=== PATIENT | female | born 1980 | race Caucasian/White ===

== ENCOUNTER 2017-01-21 14:42 | Emergency (ER) | payer MEDICAID, OTHER ==
[~2017-01-21] VITALS: Ht 162.6 cm; Wt 78.4 kg
[2017-01-21] MEDS ORDERED: FERR325T18 PO (15:25)
[2017-01-21] MEDS ORDERED: CLON0.1T PO (15:25)
[2017-01-21] MEDS ORDERED: PNV1TABL12 PO (15:25)
[2017-01-21] MEDS ORDERED: CYAN500T2 PO (15:25)
[2017-01-21] MEDS ORDERED: FOLI-17 PO (15:25)
[2017-01-21] MEDS ORDERED: CHOL20002 PO (15:25)
[2017-01-21 15:49] LABS: HEMATOCRIT 34.3 % (34.6-47.8); HEMOGLOBIN 11.4 g/dL (11.7-16.4); WHITE BLOOD COUNT 7.4 x10^3/uL (3.4-10)
[2017-01-21 15:59] LABS: ASPARTATE AMINO TRANSFERASE 41 U/L (15-37); BLOOD UREA NITROGEN 10 mg/dL (7-18); TOTAL IRON BINDING CAPACITY 249 mcg/dL (250-450)
[2017-01-21 16:15] VITALS: BP 137/77
== END 2017-01-21 16:27 ==
LOC: ED 16:10
DX: D53.9 Nutritional anemia, unspecified (principal); F11.10 Opioid abuse, uncomplicated; I10 Essential (primary) hypertension; G25.81 Restless legs syndrome
CPT/HCPCS: 36415; 71010; 80053; 82607; 82746; 83540; 83550; 85025; 93005; 99285

== ENCOUNTER 2018-06-16 21:44 | Emergency (ER) | payer MEDICAID ==
[~2018-06-16] VITALS: Ht 162.6 cm; Wt 74.0 kg
[~2018-06-16 21:44] MED LIST: CHOL20002 PO; CLON0.1T22 PO; CYAN500T2 PO; FERR325T18 PO; FOLI-17 PO; PNV1TABL12 PO
[2018-06-16] MEDS ORDERED: METH40TA2 PO (22:05)
--- NOTE | 2018-06-16 22:05 | NUR ---
PT REPORTS UPPER ABD PAIN X LAST 5 HOURS. PT REPORTS URINATION AND BM WITHOUT DIFFICULTY. LAST DRINK WAS LAST NIGHT
[2018-06-16] MEDS ORDERED: HYDROmorphone 2 MG/ML, 1ML ONE (22:17)
[2018-06-16] MEDS ORDERED: ONDANSETRON ODT 8 MG ONE (22:17)
[2018-06-16] MEDS ORDERED: HYDROmorphone 1 MG/ML, 1ML ONE (22:20)
--- NOTE | 2018-06-16 22:24 | NUR ---
[facility] BING[facility] NOW
[2018-06-16] MEDS ORDERED: HYDROmorphone 1 MG/ML, 1ML IM ONE (22:30)
[2018-06-16] MEDS ORDERED: ONDANSETRON ODT 8 MG PO ONE (22:30)
--- NOTE | 2018-06-16 22:59 | NUR ---
labs were drawn
--- NOTE | 2018-06-16 22:59 | NUR ---
pt up ambulated to bathroom with stable gait given urine cup
[2018-06-16 23:01] LABS: BASOPHILS # (AUTO) 0.01 x10^3/uL (0-0.1); BASOPHILS % (AUTO) 0 % (0-1); EOSINOPHILS # (AUTO) 0.02 x10^3/uL (0-0.4); EOSINOPHILS % (AUTO) 0 % (1-7); LYMPHOCYTES # (AUTO) 0.56 x10^3/uL (1-3.4); LYMPHOCYTES % (AUTO) 11 % (22-44); MD NO; MEAN CORPUSCULAR HEMOGLOBIN 35.3 pg (27.0-34.8); MEAN CORPUSCULAR HGB CONC 34.3 g/dL (32.4-35.8); MEAN CORPUSCULAR VOLUME 102.8 fL (80-100); MEAN PLATELET VOLUME 7.2 fL (7.4-10.4); MONOCYTES # (AUTO) 0.33 x10^3/uL (0.2-0.8); MONOCYTES % (AUTO) 7 % (2-9); NEUTROPHILS # (AUTO) 4.11 x10^3/uL (1.8-6.8); NEUTROPHILS % (AUTO) 82 % (42-75); PLATELET COUNT 200 x10^3/uL (130-400); RED BLOOD COUNT 4.15 x10^6/uL (3.82-5.3); RED CELL DISTRIBUTION WIDTH 14.1 % (9.6-15.2)
[2018-06-16 23:14] LABS: ALANINE AMINOTRANSFERASE 64 U/L (12-78); ALBUMIN 3.5 g/dL (3.4-5.0); ANION GAP 8 mmol/L (5-15); CALCIUM 8.4 mg/dL (8.5-10.1); CHLORIDE 106 mmol/L (98-107); CREATININE 0.71 mg/dL (0.55-1.02)
[2018-06-16 23:16] LABS: MICROSCOPIC NOT IND
[2018-06-16 23:18] LABS: CULTURE INDICATED? NO
[2018-06-16 23:18] LABS: ALKALINE PHOSPHATASE 122 U/L (45-117); BILIRUBIN,TOTAL 1.5 mg/dL (0.2-1.0); TOTAL PROTEIN 6.5 g/dL (6.4-8.2)
[2018-06-16] MEDS ORDERED: ZIPRASIDONE 20 MG INJ IM ONE ×2 (23:30→23:34)
--- NOTE | 2018-06-16 23:44 | NUR ---
meds given eevrt tan shot will recheck
--- NOTE | 2018-06-16 23:44 | NUR ---
pt is laying down in the [place] d/t pain given meds will recheck
--- NOTE | 2018-06-17 00:29 | NUR ---
pt is resting after given geodon im vss stable
--- NOTE | 2018-06-17 00:43 | NUR ---
pt stated feeling better now vss updated pt up ambulated to check out and calling for ride
[2018-06-17 00:44] VITALS: BP 124/84
== END 2018-06-17 00:46 | disposition home or self-care (01) ==
LOC: ED 23:05
DX: K85.20 Alcohol induced acute pancreatitis without necrosis or infection (principal); I10 Essential (primary) hypertension; Z90.89 Acquired absence of other organs; Z90.722 Acquired absence of ovaries, bilateral
CPT/HCPCS: 36415; 80053; 81003; 83690; 84703; 85025; 96372; 99283; J1170; J3486; Q0162

== ENCOUNTER 2018-06-18 05:36 | Emergency (ER) | payer MEDICAID ==
[~2018-06-18] VITALS: Ht 162.6 cm; Wt 73.1 kg
[~2018-06-18 05:36] MED LIST changes: +METH40TA2 PO
--- NOTE | 2018-06-18 06:20 | NUR ---
pt came back today again d/t abdomen pain ( pt has hx of chronic pancreatitis ) pt stated the pain is getting worset since visited yesterday . vss stable pt is [id number]
[2018-06-18] MEDS ORDERED: SODIUM CHLORIDE FLUSH 10ML SYR IVF ONE (06:30)
[2018-06-18] MEDS ORDERED: ONDANSETRON 2MG/ML, 2ML IVPush ONE (06:30)
[2018-06-18] MEDS ORDERED: ONDANSETRON 2MG/ML, 2ML ONE (06:40)
[2018-06-18] MEDS ORDERED: MORPHINE SULFATE 4 MG/ML, 1ML ONE (07:00)
[2018-06-18] MEDS ORDERED: morphine SULFATE 10 MG/ML, 1ML IVPush ONE (07:00)
[2018-06-18 07:04] LABS: BASOPHILS # (AUTO) 0.03 x10^3/uL (0-0.1); BASOPHILS % (AUTO) 0 % (0-1); EOSINOPHILS # (AUTO) 0.02 x10^3/uL (0-0.4); EOSINOPHILS % (AUTO) 0 % (1-7); LYMPHOCYTES # (AUTO) 0.78 x10^3/uL (1-3.4); LYMPHOCYTES % (AUTO) 10 % (22-44); MD NO; MEAN CORPUSCULAR HEMOGLOBIN 34.4 pg (27.0-34.8); MEAN CORPUSCULAR VOLUME 104.3 fL (80-100); MEAN PLATELET VOLUME 7.5 fL (7.4-10.4); MONOCYTES # (AUTO) 0.59 x10^3/uL (0.2-0.8); MONOCYTES % (AUTO) 8 % (2-9); NEUTROPHILS # (AUTO) 6.33 x10^3/uL (1.8-6.8); NEUTROPHILS % (AUTO) 82 % (42-75); PLATELET COUNT 243 x10^3/uL (130-400); RED BLOOD COUNT 4.45 x10^6/uL (3.82-5.3); RED CELL DISTRIBUTION WIDTH 14.1 % (9.6-15.2)
[2018-06-18] MEDS ORDERED: morphine SULFATE 10 MG/ML, 1ML ONE (07:05)
[2018-06-18 07:11] LABS: ALANINE AMINOTRANSFERASE 47 U/L (12-78); ALBUMIN 3.7 g/dL (3.4-5.0); ANION GAP 9 mmol/L (5-15); CALCIUM 8.8 mg/dL (8.5-10.1); CHLORIDE 105 mmol/L (98-107)
[2018-06-18 07:14] LABS: ALKALINE PHOSPHATASE 114 U/L (45-117); BILIRUBIN,TOTAL 1.5 mg/dL (0.2-1.0); TOTAL PROTEIN 7.1 g/dL (6.4-8.2)
--- NOTE | 2018-06-18 07:58 | NUR ---
PT MEDICATED PER ORDER. PT FOUND TO HAVE RA OF 88%. PLACED ON 2 LPM O2 VIA NC
[2018-06-18 08:26] VITALS: BP 136/79
[2018-06-18 09:11] LABS: CULTURE INDICATED? YES; MICROSCOPIC INDICATED
--- NOTE | 2018-06-18 10:28 | NUR ---
pt expressed concerns of pain. these concerns were brought to the attention of md. no new orders at this time. pt continues to moan in room. warm blanket offered but decliened.
== END 2018-06-18 10:59 | disposition home or self-care (01) ==
LOC: ED 09:26
DX: K85.20 Alcohol induced acute pancreatitis without necrosis or infection (principal); R10.84 Generalized abdominal pain; F17.200 Nicotine dependence, unspecified, uncomplicated; I10 Essential (primary) hypertension; E11.9 Type 2 diabetes mellitus without complications
CPT/HCPCS: 36415; 74021; 80053; 81001; 83690; 84703; 85025; 87086; 93005; 96374; 96375; 99284; J2270; J2405

== ENCOUNTER 2018-07-22 03:31 | Inpatient (IN) | payer MEDICAID ==
[~2018-07-22] VITALS: Ht 162.6 cm; Wt 80.1 kg
[2018-07-22] MEDS ORDERED: HYDROmorphone 2 MG/ML, 1ML ONE (04:28)
[2018-07-22] MEDS ORDERED: PROMETHAZINE 25 MG/ML, 1ML ONE (04:28)
[2018-07-22] MEDS ORDERED: SODIUM CHLORIDE FLUSH 10ML SYR IVF ONE (04:30)
[2018-07-22] MEDS ORDERED: PROMETHAZINE 25 MG/ML, 1ML IM ONE (04:30)
[2018-07-22] MEDS ORDERED: SODIUM CHLORIDE 0.9% 1,000ML IVBOLUS ONE (04:30)
[2018-07-22] MEDS ORDERED: FAMOTIDINE 20 MG/2 ML IVP ONE (04:30)
[2018-07-22] MEDS ORDERED: HYDROmorphone 1 MG/ML, 1ML INJ IM ONE (04:30)
[2018-07-22] MEDS ORDERED: MORPHINE SULFATE 4 MG/ML, 1ML IVPush ONE (04:30)
[2018-07-22] MEDS ORDERED: LORazepam 2 MG/ML, 1ML ONE ×2 (04:37→05:36)
[2018-07-22] MEDS ORDERED: FAMOTIDINE 20 MG TABLET ONE (04:43)
--- NOTE | 2018-07-22 04:43 | NUR ---
PT REPORTS SHE IS IN ALCOHOL WD. PT'S VS STABLE. PT BECAME ANXIOUS STARTED YELLING, "MY BODY IS LOCKING UP." DR CEE AWARE. VS STABLE. HEARING AID REPAIRER ON. NSR NOTED AT 98. CALL LIGHT IN PLACE. WILL CONTINUE TO MONITOR.
[2018-07-22] MEDS ORDERED: FAMOTIDINE 20 MG/2 ML ONE (04:44)
[2018-07-22 04:56] LABS: BASOPHILS # (AUTO) 0.03 x10^3/uL (0-0.1); BASOPHILS % (AUTO) 0 % (0-1); EOSINOPHILS # (AUTO) 0.09 x10^3/uL (0-0.4); EOSINOPHILS % (AUTO) 1 % (1-7); LYMPHOCYTES # (AUTO) 1.53 x10^3/uL (1-3.4); LYMPHOCYTES % (AUTO) 16 % (22-44); MD NO; MEAN CORPUSCULAR HEMOGLOBIN 34.4 pg (27.0-34.8); MEAN CORPUSCULAR HGB CONC 34.5 g/dL (32.4-35.8); MEAN CORPUSCULAR VOLUME 99.6 fL (80-100); MEAN PLATELET VOLUME 7.2 fL (7.4-10.4); MONOCYTES # (AUTO) 0.58 x10^3/uL (0.2-0.8); MONOCYTES % (AUTO) 6 % (2-9); NEUTROPHILS # (AUTO) 7.35 x10^3/uL (1.8-6.8); NEUTROPHILS % (AUTO) 77 % (42-75); PLATELET COUNT 209 x10^3/uL (130-400); RED BLOOD COUNT 4.26 x10^6/uL (3.82-5.3); RED CELL DISTRIBUTION WIDTH 14.6 % (9.6-15.2)
--- NOTE | 2018-07-22 04:57 | NUR ---
HOLD MORPHINE PER DR CEE
[2018-07-22] MEDS ORDERED: LORazepam 2 MG/ML, 1ML IVPush ONE ×2 (05:00)
[2018-07-22 05:05] LABS: ALBUMIN 3.7 g/dL (3.4-5.0); ANION GAP 10 mmol/L (5-15); CALCIUM 7.9 mg/dL (8.5-10.1); CHLORIDE 103 mmol/L (98-107)
[2018-07-22 05:08] LABS: ALANINE AMINOTRANSFERASE 44 U/L (12-78); ALKALINE PHOSPHATASE 111 U/L (45-117); BILIRUBIN,TOTAL 1.4 mg/dL (0.2-1.0); CREATININE 0.75 mg/dL (0.55-1.02); TOTAL PROTEIN 7.2 g/dL (6.4-8.2)
[2018-07-22] MEDS ORDERED: MAGNESIUM SULFATE PMX 2GM/50ML 50 ML IV ONE (05:30)
[2018-07-22] MEDS ORDERED: THIAMINE 100 MG in SODIUM CHLORIDE 0.9% 50 ML IV ONE (05:30)
[2018-07-22] MEDS ORDERED: CALCIUM GLUCONATE 4.6 MEQ in SODIUM CHLORIDE 0.9% 50 ML IV ONE (05:30)
[2018-07-22] MEDS ORDERED: MAGNESIUM SULFATE PMX 2GM/50ML 50 ML ONE (05:32)
--- NOTE | 2018-07-22 05:51 | NUR ---
PT SHAKING. ATIVAN GIVEN. DR CEE AWARE. PHARMACY CALLED. THIAMINE IS COMPATIABLE WITH MAG. CONFIRMED BY SKINNY IN THE PHARMACY.
--- NOTE | 2018-07-22 06:06 | NUR ---
REPORT CALLED INTO KATHIE QUINTERO
[2018-07-22 06:39] VITALS: BP 104/66
[2018-07-22] MEDS ORDERED: LORazepam 1MG TABLET PO PRN ×2 (08:00)
[2018-07-22] MEDS ORDERED: POLYETHYLENE GLYCOL 17 GM PACKET PO PRN (08:00)
[2018-07-22] MEDS ORDERED: ONDANSETRON ODT 4 MG PO PRN (08:00)
[2018-07-22] MEDS ORDERED: LORazepam 2 MG/ML, 1ML IV PRN ×5 (08:00)
[2018-07-22] MEDS ORDERED: LABETALOL 5MG/ML, 20ML IVPush PRN (08:00)
[2018-07-22] MEDS ORDERED: ONDANSETRON 2MG/ML, 2ML IVPush PRN (08:00)
[2018-07-22 09:27] LABS: FREE T4 (FREE THYROXINE) 0.58 ng/dL (0.76-1.46)
[2018-07-22] MEDS: LACTATED RINGERS 1,000 ML IV SCH ×3 (10:00→20:01)
[2018-07-22] MEDS: POTASSIUM CHLORIDE 20 MEQ, MAGNESIUM SULFATE 1 GM, FOLIC ACID 1 MG, THIAMINE 200 MG, MV... IV SCH (10:54)
[2018-07-22] MEDS: ENOXAPARIN 40 MG/0.4 ML SQ SCH (10:58)
[2018-07-22] MEDS: SENNA/DOCUSATE TABLET PO SCH (10:58)
[2018-07-22 12:47] VITALS: BP 123/76
[2018-07-22] MEDS: LORazepam 1MG TABLET PO PRN ×2 (15:12→17:07)
[2018-07-22 15:21] LABS: HCG UR SG 1.031 (1.003-1.030)
[2018-07-22 15:23] LABS: CULTURE INDICATED? YES; MICROSCOPIC INDICATED
[2018-07-22] MEDS: NICOTINE 7 MG/24 HR PATCH.TD24 TD SCH (15:59)
[2018-07-22 16:09] LABS: AMPHETAMINE SCREEN, URINE Negative (Negative); BARBITURATE SCREEN, URINE Negative (Negative); BENZODIAZEPINE SCREEN, URINE Positive (Negative); CANNABINOID SCREEN, URINE Positive (Negative); COCAINE SCREEN, URINE Positive (Negative); METHADONE SCREEN, URINE Positive (Negative); OPIATE SCREEN, URINE Positive (Negative)
[2018-07-22 19:15] VITALS: BP 111/70
[2018-07-23 01:09] VITALS: BP 127/81
[2018-07-23 06:20] LABS: BASOPHILS # (AUTO) 0.02 x10^3/uL (0-0.1); BASOPHILS % (AUTO) 0 % (0-1); EOSINOPHILS # (AUTO) 0.19 x10^3/uL (0-0.4); EOSINOPHILS % (AUTO) 5 % (1-7); LYMPHOCYTES # (AUTO) 1.58 x10^3/uL (1-3.4); LYMPHOCYTES % (AUTO) 39 % (22-44); MD NO; MEAN CORPUSCULAR HEMOGLOBIN 34.4 pg (27.0-34.8); MEAN CORPUSCULAR HGB CONC 34.5 g/dL (32.4-35.8); MEAN CORPUSCULAR VOLUME 99.6 fL (80-100); MEAN PLATELET VOLUME 7.3 fL (7.4-10.4); MONOCYTES # (AUTO) 0.28 x10^3/uL (0.2-0.8); MONOCYTES % (AUTO) 7 % (2-9); NEUTROPHILS # (AUTO) 1.96 x10^3/uL (1.8-6.8); NEUTROPHILS % (AUTO) 49 % (42-75); PLATELET COUNT 145 x10^3/uL (130-400); RED BLOOD COUNT 3.84 x10^6/uL (3.82-5.3); RED CELL DISTRIBUTION WIDTH 14.6 % (9.6-15.2)
[2018-07-23 06:24] LABS: ALBUMIN 2.9 g/dL (3.4-5.0); ANION GAP 5 mmol/L (5-15); CALCIUM 6.8 mg/dL (8.5-10.1); CHLORIDE 106 mmol/L (98-107)
[2018-07-23 06:33] LABS: ALANINE AMINOTRANSFERASE 28 U/L (12-78); ALKALINE PHOSPHATASE 90 U/L (45-117); BILIRUBIN,TOTAL 1.2 mg/dL (0.2-1.0); TOTAL PROTEIN 5.5 g/dL (6.4-8.2)
[2018-07-23 07:05] VITALS: BP 115/77
[2018-07-23] MEDS: PANTOPRAZOLE 40 MG IV IVPush SCH (08:04)
[2018-07-23] MEDS: ENOXAPARIN 40 MG/0.4 ML SQ SCH (08:04)
[2018-07-23] MEDS ORDERED: MAGNESIUM SULFATE PMX 2GM/50ML 50 ML IV ONE (08:30)
[2018-07-23] MEDS: SENNA/DOCUSATE TABLET PO SCH (08:47)
[2018-07-23] MEDS: LORazepam 1MG TABLET PO PRN ×3 (08:48→18:46)
[2018-07-23] MEDS: NEUTRA PHOS K 250 MG TABLET PO SCH ×3 (08:48→21:02)
[2018-07-23] MEDS: POTASSIUM CHLORIDE 20 MEQ, MAGNESIUM SULFATE 1 GM, FOLIC ACID 1 MG, THIAMINE 200 MG, MV... IV SCH (10:48)
[2018-07-23] MEDS ORDERED: METHADONE 10 MG TABLET ONE (11:21)
[2018-07-23] MEDS: METHADONE 40 MG TABLET.SOL PO PRN (11:25)
[2018-07-23 13:22] VITALS: BP 119/82
[2018-07-23] MEDS: NICOTINE 7 MG/24 HR PATCH.TD24 TD SCH (15:52)
[2018-07-23 19:21] VITALS: BP 134/88
[2018-07-23] MEDS: LORazepam 0.5MG TABLET PO PRN (21:02)
[2018-07-24 04:30] VITALS: BP 118/78
[2018-07-24 06:46] LABS: BASOPHILS # (AUTO) 0.01 x10^3/uL (0-0.1); BASOPHILS % (AUTO) 0 % (0-1); EOSINOPHILS # (AUTO) 0.21 x10^3/uL (0-0.4); EOSINOPHILS % (AUTO) 5 % (1-7); LYMPHOCYTES # (AUTO) 1.66 x10^3/uL (1-3.4); LYMPHOCYTES % (AUTO) 39 % (22-44); MD NO; MEAN CORPUSCULAR HEMOGLOBIN 34.5 pg (27.0-34.8); MEAN CORPUSCULAR HGB CONC 34.2 g/dL (32.4-35.8); MEAN CORPUSCULAR VOLUME 100.9 fL (80-100); MEAN PLATELET VOLUME 7.1 fL (7.4-10.4); MONOCYTES # (AUTO) 0.29 x10^3/uL (0.2-0.8); MONOCYTES % (AUTO) 7 % (2-9); NEUTROPHILS # (AUTO) 2.03 x10^3/uL (1.8-6.8); NEUTROPHILS % (AUTO) 48 % (42-75); PLATELET COUNT 142 x10^3/uL (130-400); RED BLOOD COUNT 3.75 x10^6/uL (3.82-5.3); RED CELL DISTRIBUTION WIDTH 15.1 % (9.6-15.2)
[2018-07-24 06:52] LABS: ALBUMIN 2.8 g/dL (3.4-5.0); ANION GAP 7 mmol/L (5-15); CALCIUM 7.2 mg/dL (8.5-10.1); CHLORIDE 108 mmol/L (98-107)
[2018-07-24 06:56] LABS: ALANINE AMINOTRANSFERASE 28 U/L (12-78); ALKALINE PHOSPHATASE 92 U/L (45-117); BILIRUBIN,TOTAL 0.8 mg/dL (0.2-1.0); CREATININE 0.65 mg/dL (0.55-1.02); TOTAL PROTEIN 5.6 g/dL (6.4-8.2)
[2018-07-24] MEDS: ENOXAPARIN 40 MG/0.4 ML SQ SCH (08:55)
[2018-07-24] MEDS: PANTOPRAZOLE 40 MG IV IVPush SCH (08:55)
[2018-07-24] MEDS: SENNA/DOCUSATE TABLET PO SCH (08:56)
[2018-07-24] MEDS: LORazepam 0.5MG TABLET PO PRN (08:56)
[2018-07-24] MEDS: POTASSIUM CHLORIDE 20 MEQ, MAGNESIUM SULFATE 1 GM, FOLIC ACID 1 MG, THIAMINE 200 MG, MV... IV SCH (10:36)
[2018-07-24 13:10] VITALS: BP 119/78
[2018-07-24] MEDS ORDERED: METHADONE 10 MG TABLET ONE (14:39)
[2018-07-24] MEDS: METHADONE 40 MG TABLET.SOL PO PRN (14:41)
[2018-07-24] MEDS: NICOTINE 7 MG/24 HR PATCH.TD24 TD SCH (16:30)
[2018-07-24 20:00] VITALS: BP 101/65
[2018-07-25 02:00] VITALS: BP 105/71
[2018-07-25 06:48] LABS: ALBUMIN 3.1 g/dL (3.4-5.0); ANION GAP 8 mmol/L (5-15); CHLORIDE 108 mmol/L (98-107); CREATININE 0.74 mg/dL (0.55-1.02)
[2018-07-25 06:54] LABS: BASOPHILS # (AUTO) 0.03 x10^3/uL (0-0.1); BASOPHILS % (AUTO) 1 % (0-1); EOSINOPHILS # (AUTO) 0.21 x10^3/uL (0-0.4); EOSINOPHILS % (AUTO) 4 % (1-7); LYMPHOCYTES # (AUTO) 1.59 x10^3/uL (1-3.4); LYMPHOCYTES % (AUTO) 32 % (22-44); MD NO; MEAN CORPUSCULAR HEMOGLOBIN 34.2 pg (27.0-34.8); MEAN CORPUSCULAR HGB CONC 33.8 g/dL (32.4-35.8); MEAN CORPUSCULAR VOLUME 101.1 fL (80-100); MEAN PLATELET VOLUME 7.3 fL (7.4-10.4); MONOCYTES # (AUTO) 0.26 x10^3/uL (0.2-0.8); MONOCYTES % (AUTO) 5 % (2-9); NEUTROPHILS # (AUTO) 2.87 x10^3/uL (1.8-6.8); NEUTROPHILS % (AUTO) 58 % (42-75); PLATELET COUNT 180 x10^3/uL (130-400); RED BLOOD COUNT 4.12 x10^6/uL (3.82-5.3)
[2018-07-25 07:26] VITALS: BP 110/68
[2018-07-25] MEDS: ENOXAPARIN 40 MG/0.4 ML SQ SCH (08:00)
[2018-07-25] MEDS: SENNA/DOCUSATE TABLET PO SCH (09:00)
[2018-07-25] MEDS ORDERED: METHADONE 10 MG TABLET ONE (09:17)
[2018-07-25] MEDS: PANTOPRAZOLE 40 MG IV IVPush SCH (09:21)
[2018-07-25] MEDS: METHADONE 40 MG TABLET.SOL PO PRN (09:22)
[2018-07-25] MEDS: POTASSIUM CHLORIDE 20 MEQ, MAGNESIUM SULFATE 1 GM, FOLIC ACID 1 MG, THIAMINE 200 MG, MV... IV SCH (10:46)
== END 2018-07-25 15:05 | disposition left against medical advice (07) | DRG 439 ==
LOC: ED 04:20 → 5SO 06:03 → 4EST 06:22
PROVIDERS: ADMIT Emergency Medicine; ATTEND Emergency Medicine
DX: K85.90 Acute pancreatitis without necrosis or infection, unspecified (principal); F13.20 Sedative, hypnotic or anxiolytic dependence, uncomplicated; G89.29 Other chronic pain; F10.20 Alcohol dependence, uncomplicated; F17.210 Nicotine dependence, cigarettes, uncomplicated; I10 Essential (primary) hypertension; K86.1 Other chronic pancreatitis; E87.6 Hypokalemia; E86.0 Dehydration; E83.51 Hypocalcemia; E83.42 Hypomagnesemia; E83.39 Other disorders of phosphorus metabolism; E11.9 Type 2 diabetes mellitus without complications; Z90.49 Acquired absence of other specified parts of digestive tract; Z79.891 Long term (current) use of opiate analgesic; Z80.8 Family history of malignant neoplasm of other organs or systems; Z90.79 Acquired absence of other genital organ(s); Z53.21 Procedure and treatment not carried out due to patient leaving prior to being seen by health care provider
CPT/HCPCS: 36415; 99291; J3490; J7121; 76700; 80048; 80053; 80307; 81001; 81025; 82040; 82607; 83690; 83735; 84100; 84439; 84443; 85025; 87086; 93005; 96365; 96368; 96372; 96375; 96376; G0378; J0610; J1170; J1650; J2550; J3411; J3475; J3480; Q0162; C9113; J2060; J7030; J7120

== ENCOUNTER 2019-05-19 11:01 | Inpatient (IN) | payer MEDICAID ==
[~2019-05-19] VITALS: Ht 162.6 cm; Wt 80.6 kg
[~2019-05-19 11:01] MED LIST changes: +ALBU18HF INH; -CYAN500T2 PO; +CYAN500T54 PO; +IBUP-1223 PO; +LISI5TAB7 PO; +PRED20TA PO
--- NOTE | 2019-05-19 11:33 | NUR ---
SEX CRIMES DETECTIVE: PT TO ROOM FROM LOBBY
--- NOTE | 2019-05-19 11:52 | NUR ---
PT HERE WITH MULTIPLE COMPLAINTS: BILATERAL LOWER EXTREMITY EDEMA/PAIN, SOB (CONSTANT PER PT), "PAIN EVERYWHERE, ALL OVER MY ENTIRE TORSO," CONSTANT FATIGUE, "ORANGE PEE," AND "YELLOW EYES." PT DRESSED IN GOWN, ATTACHED TO FULL MONITOR. PT CRYING AND ANXIOUS IN ROOM, MOM AT BEDSIDE. CALL LIGHT WITHIN REACH, SIDERAIL X [address] PT ON ROOM AIR, NAD.
--- NOTE | 2019-05-19 12:19 | NUR ---
UA SENT TO LAB.
[2019-05-19] MEDS ORDERED: SODIUM CHLORIDE 0.9% 1,000ML IVBOLUS ONE ×2 (12:30→16:00)
[2019-05-19] MEDS ORDERED: FAMOTIDINE 20 MG/2 ML IV ONE (12:30)
[2019-05-19] MEDS ORDERED: SODIUM CHLORIDE FLUSH 10ML SYR IVF ONE (12:30)
[2019-05-19 12:42] LABS: MICROSCOPIC INDICATED
[2019-05-19 12:46] LABS: CULTURE INDICATED? YES
[2019-05-19 12:49] LABS: HCG UR SG 1.034 (1.003-1.030)
--- NOTE | 2019-05-19 13:00 | NUR ---
TECH AT BEDSIDE, US GUIDED IV STARTED AND LABS DRAWN.
--- NOTE | 2019-05-19 13:01 | NUR ---
US AT BEDSIDE.
[2019-05-19] MEDS ORDERED: MORPHINE SULFATE 4 MG/ML, 1ML ONE ×2 (13:11→16:48)
[2019-05-19] MEDS ORDERED: FAMOTIDINE 20 MG/2 ML ONE (13:11)
[2019-05-19] MEDS: MORPHINE SULFATE 4 MG/ML, 1ML IVPush PRN ×2 (13:14→17:06)
--- NOTE | 2019-05-19 13:16 | NUR ---
PT MEDICATED PER ORDERS.
[2019-05-19 13:18] LABS: BASOPHILS % (AUTO) 1 % (0-1); EOSINOPHILS # (AUTO) 0.02 x10^3/uL (0-0.4); EOSINOPHILS % (AUTO) 0 % (1-7); LYMPHOCYTES # (AUTO) 1.74 x10^3/uL (1-3.4); LYMPHOCYTES % (AUTO) 12 % (22-44); MD NO; MEAN CORPUSCULAR HEMOGLOBIN 37.3 pg (27.0-34.8); MEAN CORPUSCULAR HGB CONC 34.2 g/dL (32.4-35.8); MEAN PLATELET VOLUME 8.7 fL (7.4-10.4); MONOCYTES # (AUTO) 0.82 x10^3/uL (0.2-0.8); MONOCYTES % (AUTO) 6 % (2-9); NEUTROPHILS # (AUTO) 12.33 x10^3/uL (1.8-6.8); NEUTROPHILS % (AUTO) 82 % (42-75); PLATELET COUNT 192 x10^3/uL (130-400); RED BLOOD COUNT 3.74 x10^6/uL (3.82-5.3); RED CELL DISTRIBUTION WIDTH 17.4 % (9.6-15.2)
--- NOTE | 2019-05-19 13:31 | NUR ---
PT TO RADIOLOGY.
--- NOTE | 2019-05-19 13:45 | NUR ---
PT BACK FROM RADIOLOGY.
--- NOTE | 2019-05-19 14:17 | NUR ---
LAB AT BEDSIDE FOR REDRAW.
[2019-05-19 14:30] LABS: ALANINE AMINOTRANSFERASE 174 U/L (12-78); CHLORIDE 94 mmol/L (98-107); CREATININE 0.65 mg/dL (0.55-1.02)
[2019-05-19 14:38] LABS: ALKALINE PHOSPHATASE 289 U/L (45-117); ANION GAP 14 mmol/L (5-15); BILIRUBIN,TOTAL 4.5 mg/dL (0.2-1.0); TOTAL PROTEIN 5.1 g/dL (6.4-8.2)
[2019-05-19] MEDS ORDERED: POTASSIUM CHLORIDE 40 MEQ in SODIUM CHLORIDE 0.9% 500 ML IV ONE (15:00)
--- NOTE | 2019-05-19 15:26 | NUR ---
REPORT GIVEN TO SULAIMAN, CARE TRANSFERRED.
[2019-05-19] MEDS ORDERED: LORazepam 2 MG/ML, 1ML IVPush ONE (16:00)
[2019-05-19] MEDS ORDERED: LORazepam 2 MG/ML, 1ML IV PRN (16:30)
[2019-05-19] MEDS ORDERED: LORazepam 1MG TABLET PO PRN ×2 (16:30)
[2019-05-19] MEDS ORDERED: ONDANSETRON 2MG/ML, 2ML ONE (16:48)
[2019-05-19] MEDS ORDERED: LORazepam 2 MG/ML, 1ML ONE (16:49)
--- NOTE | 2019-05-19 16:59 | NUR ---
report to steven lazo for med/tele
[2019-05-19] MEDS: ONDANSETRON 2MG/ML, 2ML IVPush PRN ×2 (17:06→21:03)
[2019-05-19] MEDS ORDERED: CEFOTETAN PMX 1GM/50ML 50 ML IV ONE ×2 (17:30→21:00)
[2019-05-19 17:47] VITALS: BP 106/72
[2019-05-19] MEDS: NICOTINE 14MG/24 HR PATCH.TD24 TD SCH (18:01)
[2019-05-19] MEDS: ENOXAPARIN 40 MG/0.4 ML SQ SCH (18:01)
[2019-05-19 19:41] VITALS: BP 104/64
[2019-05-19] MEDS: LACTOBACILLUS CHEW TABLET PO SCH (20:58)
[2019-05-19] MEDS: OXYcodone IR 5MG TABLET PO PRN ×2 (20:59→22:16)
[2019-05-19] MEDS: FAMOTIDINE 20 MG/2 ML IVPush SCH (21:02)
[2019-05-19] MEDS: LORazepam 2 MG/ML, 1ML IV PRN (22:30)
[2019-05-19] MEDS: POTASSIUM CHLORIDE 20 MEQ, MAGNESIUM SULFATE 2 GM, THIAMINE 200 MG, MVI ADULT 10 ML, FO... IV SCH (23:03)
[2019-05-20] MEDS ORDERED: ALBUTEROL SULFATE 2.5 MG/3 ML NPPB PRN (01:00)
[2019-05-20] MEDS: LORazepam 2 MG/ML, 1ML IV PRN ×3 (01:30→04:42)
[2019-05-20 02:32] VITALS: BP 122/68
[2019-05-20 04:30] LABS: BASOPHILS # (AUTO) 0.02 x10^3/uL (0-0.1); BASOPHILS % (AUTO) 0 % (0-1); EOSINOPHILS # (AUTO) 0.07 x10^3/uL (0-0.4); EOSINOPHILS % (AUTO) 1 % (1-7); LYMPHOCYTES # (AUTO) 1.43 x10^3/uL (1-3.4); LYMPHOCYTES % (AUTO) 16 % (22-44); MD NO; MEAN CORPUSCULAR HEMOGLOBIN 37.2 pg (27.0-34.8); MEAN CORPUSCULAR HGB CONC 33.8 g/dL (32.4-35.8); MEAN PLATELET VOLUME 8.5 fL (7.4-10.4); MONOCYTES # (AUTO) 0.54 x10^3/uL (0.2-0.8); MONOCYTES % (AUTO) 6 % (2-9); NEUTROPHILS # (AUTO) 6.87 x10^3/uL (1.8-6.8); NEUTROPHILS % (AUTO) 77 % (42-75); PLATELET COUNT 165 x10^3/uL (130-400); RED BLOOD COUNT 3.24 x10^6/uL (3.82-5.3)
[2019-05-20 04:35] LABS: ALANINE AMINOTRANSFERASE 171 U/L (12-78); ANION GAP 13 mmol/L (5-15); CALCIUM 6.9 mg/dL (8.5-10.1); CHLORIDE 101 mmol/L (98-107); CREATININE 0.87 mg/dL (0.55-1.02)
[2019-05-20 04:38] LABS: ALKALINE PHOSPHATASE 304 U/L (45-117); TOTAL PROTEIN 5.1 g/dL (6.4-8.2)
[2019-05-20] MEDS ORDERED: GLUCAGON 1 MG IM PRN (06:00)
[2019-05-20] MEDS ORDERED: DEXTROSE 50%, 50ML SYRINGE IVPush PRN (06:00)
[2019-05-20] MEDS ORDERED: DEXTROSE 4 GM TAB.CHEW PO PRN (06:00)
[2019-05-20 06:49] VITALS: BP 119/72
[2019-05-20] MEDS ORDERED: CALCIUM GLUCONATE 4.6 MEQ in SODIUM CHLORIDE 0.9% 100 ML IV ONE (08:00)
[2019-05-20] MEDS ORDERED: CALCIUM GLUCONATE 0.46MEQ/1ML IVPush ONE (08:00)
[2019-05-20] MEDS ORDERED: MAGNESIUM SULFATE PMX 4GM/100M 100 ML IV ONE (08:00)
[2019-05-20] MEDS: LACTOBACILLUS CHEW TABLET PO SCH ×3 (08:58→19:29)
[2019-05-20] MEDS: FAMOTIDINE 20 MG/2 ML IVPush SCH ×2 (08:58→19:29)
[2019-05-20] MEDS: CALCIUM/VITAMIN D3 250-125 TABLET PO SCH ×2 (08:58→19:29)
[2019-05-20] MEDS: LISINOPRIL 5 MG TABLET PO SCH (08:58)
[2019-05-20] MEDS: SODIUM CHLORIDE FLUSH 10ML SYR IVF SCH ×2 (09:00→19:29)
[2019-05-20] MEDS ORDERED: METHADONE 40 MG TABLET.SOL PO SCH (09:00)
[2019-05-20] MEDS: METHADONE INTENSOL 10 MG/ML ORAL CONC PO SCH (09:26)
[2019-05-20 13:47] VITALS: BP 160/99
[2019-05-20] MEDS: ACETAMINOPHEN 325 MG TABLET PO PRN (14:04)
[2019-05-20] MEDS: POTASSIUM CHLORIDE 20 MEQ, MAGNESIUM SULFATE 2 GM, THIAMINE 200 MG, MVI ADULT 10 ML, FO... IV SCH (15:33)
[2019-05-20] MEDS: ENOXAPARIN 40 MG/0.4 ML SQ SCH (17:43)
[2019-05-20] MEDS: NICOTINE 14MG/24 HR PATCH.TD24 TD SCH (17:43)
[2019-05-20 20:00] VITALS: BP 101/65
[2019-05-21 00:10] VITALS: BP 100/62
[2019-05-21 06:18] LABS: ALBUMIN 2.1 g/dL (3.4-5.0); ANION GAP 17 mmol/L (5-15); CALCIUM 7.5 mg/dL (8.5-10.1); CHLORIDE 98 mmol/L (98-107); CREATININE 0.81 mg/dL (0.55-1.02)
[2019-05-21 06:21] LABS: ALANINE AMINOTRANSFERASE 191 U/L (12-78); ALKALINE PHOSPHATASE 397 U/L (45-117); BILIRUBIN,TOTAL 7.4 mg/dL (0.2-1.0); TOTAL PROTEIN 6.1 g/dL (6.4-8.2)
[2019-05-21 07:37] VITALS: BP 100/66
[2019-05-21] MEDS ORDERED: FAMOTIDINE 40 MG TABLET ONE ×2 (08:12→20:45)
[2019-05-21] MEDS ORDERED: METHADONE 10 MG TABLET ONE (08:13)
[2019-05-21] MEDS ORDERED: METHADONE 5 MG TABLET ONE (08:14)
[2019-05-21] MEDS: LACTOBACILLUS CHEW TABLET PO SCH ×3 (08:19→20:52)
[2019-05-21] MEDS: LISINOPRIL 5 MG TABLET PO SCH (08:20)
[2019-05-21] MEDS: CALCIUM/VITAMIN D3 250-125 TABLET PO SCH ×2 (08:22→20:51)
[2019-05-21] MEDS: METHADONE INTENSOL 10 MG/ML ORAL CONC PO SCH (08:23)
[2019-05-21] MEDS: SODIUM CHLORIDE FLUSH 10ML SYR IVF SCH ×2 (08:23→20:52)
[2019-05-21] MEDS: SODIUM CHLORIDE 0.9% 1,000 ML IV SCH ×2 (08:23→20:51)
[2019-05-21] MEDS: FAMOTIDINE 20 MG TABLET PO SCH ×2 (08:26→20:52)
[2019-05-21] MEDS: ONDANSETRON ODT 4 MG PO PRN ×2 (11:07→17:00)
[2019-05-21 12:13] VITALS: BP_SYST 112; BP_SYST 147; BP_DIAS 62; BP_DIAS 82
[2019-05-21] MEDS: LORazepam 0.5MG TABLET PO PRN ×2 (15:00→20:52)
[2019-05-21] MEDS: ACETAMINOPHEN 325 MG TABLET PO PRN (17:00)
[2019-05-21] MEDS: NICOTINE 14MG/24 HR PATCH.TD24 TD SCH (17:16)
[2019-05-21] MEDS: ENOXAPARIN 40 MG/0.4 ML SQ SCH (17:16)
[2019-05-21 19:28] VITALS: BP 100/60
[2019-05-22 02:05] VITALS: BP 109/72
[2019-05-22 05:38] LABS: MEAN CORPUSCULAR HEMOGLOBIN 37.6 pg (27.0-34.8); MEAN CORPUSCULAR HGB CONC 33.3 g/dL (32.4-35.8); MEAN CORPUSCULAR VOLUME 112.9 fL (80-100); MEAN PLATELET VOLUME 8.9 fL (7.4-10.4); PLATELET COUNT 150 x10^3/uL (130-400); RED BLOOD COUNT 2.96 x10^6/uL (3.82-5.3); RED CELL DISTRIBUTION WIDTH 17.9 % (9.6-15.2)
[2019-05-22 05:43] LABS: ALBUMIN 1.8 g/dL (3.4-5.0); ANION GAP 11 mmol/L (5-15); CHLORIDE 99 mmol/L (98-107)
[2019-05-22 05:46] LABS: ALANINE AMINOTRANSFERASE 144 U/L (12-78); ALKALINE PHOSPHATASE 299 U/L (45-117); BILIRUBIN,TOTAL 6.7 mg/dL (0.2-1.0); TOTAL PROTEIN 4.7 g/dL (6.4-8.2)
[2019-05-22] MEDS ORDERED: EPINEPHRINE 1 MG/ML, 1ML ONE (06:15)
[2019-05-22] MEDS ORDERED: BUPIVACAINE/PF 0.5% ONE (06:15)
[2019-05-22 06:23] LABS: BASOPHILS # (AUTO) 0.02 x10^3/uL (0-0.1); BASOPHILS % (AUTO) 0 % (0-1); EOSINOPHILS # (AUTO) 0.07 x10^3/uL (0-0.4); EOSINOPHILS % (AUTO) 1 % (1-7); LYMPHOCYTES # (AUTO) 1.28 x10^3/uL (1-3.4); LYMPHOCYTES % (AUTO) 22 % (22-44); MD SCAN; MONOCYTES # (AUTO) 0.45 x10^3/uL (0.2-0.8); MONOCYTES % (AUTO) 8 % (2-9); NEUTROPHILS # (AUTO) 3.93 x10^3/uL (1.8-6.8); NEUTROPHILS % (AUTO) 68 % (42-75)
[2019-05-22] MEDS ORDERED: FENTANYL PF 250 MCG/5ML ONE (06:52)
[2019-05-22] MEDS ORDERED: hydrALAzine 20 MG/ML, 1ML IV PRN (07:00)
[2019-05-22] MEDS ORDERED: HYDROmorphone 2 MG/ML, 1ML IVPush PRN (07:00)
[2019-05-22] MEDS ORDERED: LABETALOL 5MG/ML, 20ML IV PRN (07:00)
[2019-05-22] MEDS ORDERED: OXYcodone 5 MG/5 ML ORAL.SOL UDC PO PRN (07:00)
[2019-05-22] MEDS ORDERED: LORazepam 2 MG/ML, 1ML IVPush PRN (07:00)
[2019-05-22] MEDS ORDERED: HALOPERIDOL 5 MG/ML IV PRN (07:00)
[2019-05-22] MEDS ORDERED: PROMETHAZINE 25 MG/ML, 1ML IV PRN (07:00)
[2019-05-22] MEDS ORDERED: MEPERIDINE/PF 25MG/ML,1ML IVPush PRN (07:00)
[2019-05-22] MEDS ORDERED: CEFOTETAN PMX 2GM/50ML 50 ML ONE (07:07)
[2019-05-22] MEDS ORDERED: ALBUTEROL HFA 90 MCG/SPRAY ONE (07:07)
[2019-05-22] MEDS ORDERED: SUGAMMADEX 200 MG/2 ML IVPush ONE (07:26)
[2019-05-22] MEDS ORDERED: THROMBIN 5,000 UNIT VIAL TP ONE (07:43)
[2019-05-22] MEDS ORDERED: FENTANYL PF 100 MCG/2ML ONE ×2 (07:51→08:25)
[2019-05-22] MEDS ORDERED: NEOSTIGMINE 1 MG/ML, 10ML ONE (07:55)
[2019-05-22] MEDS ORDERED: CEFAZOLIN 1,000 MG ONE (07:55)
[2019-05-22] MEDS ORDERED: GLYCOPYRROLATE 0.2MG/1ML, 5ML ONE (07:55)
[2019-05-22] MEDS ORDERED: ROCURONIUM 10MG/ML,5ML ONE (07:55)
[2019-05-22] MEDS ORDERED: PROPOFOL 10 MG/ML, 20ML ONE (07:55)
[2019-05-22] MEDS ORDERED: ONDANSETRON 2MG/ML, 2ML ONE ×2 (07:55→09:02)
[2019-05-22] MEDS ORDERED: SUCCINYLCHOLINE 20 MG/ML, 10ML ONE (07:55)
[2019-05-22] MEDS ORDERED: DEXAMETHASONE 4 MG/ML, 1ML ONE (07:55)
[2019-05-22] MEDS ORDERED: OXYcodone 5 MG/5 ML ORAL.SOL UDC ONE (08:25)
[2019-05-22] MEDS ORDERED: HYDROmorphone 2 MG/ML, 1ML ONE (08:25)
[2019-05-22] MEDS ORDERED: METHADONE 10 MG TABLET PO ONE (08:30)
[2019-05-22] MEDS: FENTANYL PF 100 MCG/2ML IV PRN ×2 (08:45→09:10)
[2019-05-22] MEDS: LACTOBACILLUS CHEW TABLET PO SCH ×3 (09:00→21:25)
[2019-05-22] MEDS: ONDANSETRON 2MG/ML, 2ML IVPush PRN (09:05)
[2019-05-22 10:12] VITALS: BP 112/75
[2019-05-22] MEDS: SODIUM CHLORIDE FLUSH 10ML SYR IVF SCH ×2 (11:49→21:24)
[2019-05-22] MEDS: SODIUM CHLORIDE 0.9% 1,000 ML IV SCH ×2 (11:49→21:25)
[2019-05-22] MEDS: CALCIUM/VITAMIN D3 250-125 TABLET PO SCH ×2 (11:49→21:25)
[2019-05-22] MEDS: LISINOPRIL 5 MG TABLET PO SCH (11:49)
[2019-05-22] MEDS: FAMOTIDINE 20 MG TABLET PO SCH ×2 (11:49→21:25)
[2019-05-22] MEDS: METHADONE INTENSOL 10 MG/ML ORAL CONC PO SCH (12:23)
[2019-05-22 12:34] VITALS: BP 99/66
[2019-05-22 15:31] VITALS: BP 101/66
[2019-05-22] MEDS: OXYcodone IR 5MG TABLET PO PRN (17:04)
[2019-05-22] MEDS: ENOXAPARIN 40 MG/0.4 ML SQ SCH (17:05)
[2019-05-22] MEDS: NICOTINE 14MG/24 HR PATCH.TD24 TD SCH (17:08)
[2019-05-22 19:13] VITALS: BP 111/62
[2019-05-22] MEDS: ACETAMINOPHEN 325 MG TABLET PO PRN (19:34)
[2019-05-22] MEDS ORDERED: FAMOTIDINE 40 MG TABLET ONE (21:08)
[2019-05-23 00:35] VITALS: BP 102/72
[2019-05-23 01:49] LABS: AMPHETAMINE SCREEN, URINE Negative (Negative); BARBITURATE SCREEN, URINE Negative (Negative); BENZODIAZEPINE SCREEN, URINE Positive (Negative); CANNABINOID SCREEN, URINE Negative (Negative); COCAINE SCREEN, URINE Negative (Negative); METHADONE SCREEN, URINE Positive (Negative); OPIATE SCREEN, URINE Positive (Negative)
[2019-05-23 04:52] LABS: ALANINE AMINOTRANSFERASE 151 U/L (12-78); ALBUMIN 1.9 g/dL (3.4-5.0); ANION GAP 10 mmol/L (5-15); CALCIUM 7.1 mg/dL (8.5-10.1); CHLORIDE 99 mmol/L (98-107); CREATININE 1.02 mg/dL (0.55-1.02)
[2019-05-23 04:55] LABS: ALKALINE PHOSPHATASE 310 U/L (45-117); BILIRUBIN,TOTAL 6.3 mg/dL (0.2-1.0); TOTAL PROTEIN 5.1 g/dL (6.4-8.2)
[2019-05-23 05:10] LABS: MEAN CORPUSCULAR HEMOGLOBIN 37.8 pg (27.0-34.8); MEAN CORPUSCULAR HGB CONC 32.8 g/dL (32.4-35.8); MEAN CORPUSCULAR VOLUME 115.3 fL (80-100); MEAN PLATELET VOLUME 8.3 fL (7.4-10.4); PLATELET COUNT 168 x10^3/uL (130-400); RED BLOOD COUNT 2.93 x10^6/uL (3.82-5.3)
[2019-05-23 05:27] LABS: BASOPHILS # (AUTO) 0.01 x10^3/uL (0-0.1); BASOPHILS % (AUTO) 0 % (0-1); EOSINOPHILS # (AUTO) 0.01 x10^3/uL (0-0.4); EOSINOPHILS % (AUTO) 0 % (1-7); LYMPHOCYTES # (AUTO) 1.49 x10^3/uL (1-3.4); LYMPHOCYTES % (AUTO) 18 % (22-44); MD SCAN; MONOCYTES # (AUTO) 0.86 x10^3/uL (0.2-0.8); MONOCYTES % (AUTO) 10 % (2-9); NEUTROPHILS # (AUTO) 5.97 x10^3/uL (1.8-6.8); NEUTROPHILS % (AUTO) 72 % (42-75)
[2019-05-23 07:48] VITALS: BP 95/60
[2019-05-23] MEDS ORDERED: NICO-486 TD (09:01)
[2019-05-23] MEDS ORDERED: ACET325T26 PO (09:01)
[2019-05-23] MEDS ORDERED: CALC1TAB68 PO (09:01)
[2019-05-23] MEDS ORDERED: ACID1TAB7 PO (09:01)
[2019-05-23] MEDS ORDERED: FLU VACC QS2019-20 36MOS UP/PF 0.5 ML IM-VACC ONE (10:30)
[2019-05-23] MEDS ORDERED: ALBU18HF INH (10:43)
[2019-05-23] MEDS: LISINOPRIL 5 MG TABLET PO SCH (11:00)
[2019-05-23] MEDS: METHADONE INTENSOL 10 MG/ML ORAL CONC PO SCH (11:08)
[2019-05-23] MEDS: FAMOTIDINE 20 MG TABLET PO SCH (11:08)
[2019-05-23] MEDS: LACTOBACILLUS CHEW TABLET PO SCH (11:08)
[2019-05-23] MEDS: CALCIUM/VITAMIN D3 250-125 TABLET PO SCH (11:09)
[2019-05-23 11:17] VITALS: BP 98/65
== END 2019-05-23 12:56 | disposition home or self-care (01) | DRG 357 ==
LOC: ED 13:07 → EDIP 15:44 → 4EST 17:31 → DCLOUNGE 05-23 12:46
PROVIDERS: ADMIT Internal Medicine; ATTEND Internal Medicine
PROC: 0FB04ZX Excision of Liver, Percutaneous Endoscopic Approach, Diagnostic (ICD-10-PCS; 2019-05-22)
PROC: 0FT44ZZ Resection of Gallbladder, Percutaneous Endoscopic Approach (ICD-10-PCS; principal; 2019-05-22 07:00)
DX: K29.20 Alcoholic gastritis without bleeding (principal); E87.1 Hypo-osmolality and hyponatremia; F10.239 Alcohol dependence with withdrawal, unspecified; F11.20 Opioid dependence, uncomplicated; K81.0 Acute cholecystitis; E11.9 Type 2 diabetes mellitus without complications; E66.9 Obesity, unspecified; K70.10 Alcoholic hepatitis without ascites; Z68.30 Body mass index [BMI] 30.0-30.9, adult; E83.42 Hypomagnesemia; E83.51 Hypocalcemia; E83.52 Hypercalcemia; E87.6 Hypokalemia; E88.09 Other disorders of plasma-protein metabolism, not elsewhere classified; F17.210 Nicotine dependence, cigarettes, uncomplicated; G47.00 Insomnia, unspecified; G89.4 Chronic pain syndrome; I10 Essential (primary) hypertension; J45.909 Unspecified asthma, uncomplicated; K74.60 Unspecified cirrhosis of liver; Z79.891 Long term (current) use of opiate analgesic
CPT/HCPCS: 36415; 74022; 96361; 96374; 96375; 96376; 99291; J3490; J7042; S0020; 76700; 80053; 80307; 81001; 81025; 82330; 82962; 83605; 83690; 83735; 83880; 85025; 87077; 87086; 87186; 88304; 88307; 88313; 90686; 93005; G0378; J0171; J0610; J0690; J1100; J1650; J2405; J2704; J2710; J3010; J3411; J3475; J3480; Q0162; J0330; J2060; J2270; J7030; J7040